=== PATIENT | male | born 1960 | race Caucasian/White ===

== ENCOUNTER 2018-11-21 01:03 | Emergency (ER) | payer OTHER ==
[~2018-11-21] VITALS: Ht 177.8 cm; Wt 88.8 kg
[~2018-11-21 01:03] MED LIST: ACET500C5 PO; ALBU18HF INHALATION; ALBU8.5H8 INH; AZIT500T3 PO; GUAI120S25 PO
[2018-11-21 01:09] VITALS: Ht 177.8 cm; Wt 88.8 kg
[2018-11-21] MEDS ORDERED: IPRATROPIUM (NEB) 0.5 MG/2.5 ML AMP NEB STA (01:41)
[2018-11-21] MEDS ORDERED: ALBUTEROL 0.083% (NEB) 2.5 MG/3 ML AMP NEB STA (01:41)
[2018-11-21] MEDS ORDERED: SOD CHLORIDE 0.9% 1,000 ML IV ONE (03:30)
[2018-11-21 05:13] VITALS: BP 147/84; PULSE 101; RESP 16
== END 2018-11-21 05:15 | disposition home or self-care (01) ==
LOC: E/R 01:03 → FTE 05:15
DX: J40 Bronchitis, not specified as acute or chronic (principal); I10 Essential (primary) hypertension; E11.9 Type 2 diabetes mellitus without complications; F17.210 Nicotine dependence, cigarettes, uncomplicated
CPT/HCPCS: 71046; 80053; 81003; 84484; 85025; 85378; 93005; 94644; 96360; 99285; J7030